=== PATIENT | female | born 1965 | race Caucasian/White ===

== ENCOUNTER 2018-11-23 14:36 | Emergency (ER) | payer MEDICAID ==
[~2018-11-23] VITALS: Ht 162.6 cm; Wt 57.0 kg
[2018-11-23 15:18] LABS: CHLORIDE 112 mEq/L (98-107)
[2018-11-23 15:23] LABS: BASOPHILS % 0.8 % (0.0-2.0); EOSINOPHILS % 0.2 % (0.0-5.0); HEMATOCRIT. 42.6 % (36.0-48.0); HEMOGLOBIN. 14.6 g/dL (12.0-16.0); LYMPHOCYTES % 53.9 % (20.0-50.0); MEAN CORPUSCULAR HEMOGLOBIN 31.6 pg (28.0-32.0); MEAN PLATELET VOLUME 7.4 fl (7.4-10.4); MONOCYTES % 4.6 % (2.0-8.0); NEUTROPHILS % 40.5 % (40.0-76.0); PLATELET 200 x1000/uL (130-400); RED BLOOD CELL COUNT 4.63 mill/uL (4.2-5.4); RED CELL DISTRIBUTION WIDTH 12.8 % (11.6-14.6)
[2018-11-23 15:31] LABS: ETHANOL BLOOD 310 mg/dL
[2018-11-23] MEDS ORDERED: FOLIC ACID 1 MG, THIAMINE HCL 100 MG, MVI, ADULT NO.1 10 ML in DEXTROSE 5% WATER 1,000 ML IV NR ×4 (15:45)
[2018-11-23 16:11] LABS: CLARITY URINE CLEAR (CLEAR); COLOR URINE YELLOW (YELLOW); KETONES URINE NEGATIVE (NEGATIVE); LEUKOCYTE ESTERASE URINE NEGATIVE (NEGATIVE); NITRITE URINE NEGATIVE (NEGATIVE); OCCULT BLOOD URINE NEGATIVE (NEGATIVE); PH URINE 5.5 (4.5-8.0); PROTEIN URINE NEGATIVE (NEGATIVE); SPECIFIC GRAVITY URINE 1.002 (1.005-1.030); UROBILINOGEN URINE 0.2 E.U./dL (0.2-1.0)
[2018-11-23 16:20] LABS: *AMPHETAMINES SCREEN URINE NEGATIVE (NEGATIVE); *BARBITURATES SCREEN URINE NEGATIVE (NEGATIVE); *BENZODIAZEPINES SCREEN URINE NEGATIVE (NEGATIVE); *COCAINE SCREEN URINE NEGATIVE (NEGATIVE)
[2018-11-23 16:21] LABS: CANNABINOID URINE SCREEN NEGATIVE (NEGATIVE); METHADONE URINE SCREEN NEGATIVE (NEGATIVE); OPIATES URINE SCREEN NEGATIVE (NEGATIVE); PHENCYCLIDINE URINE SCREEN NEGATIVE (NEGATIVE)
[2018-11-23] MEDS ORDERED: LORAZEPAM 2MG/ML CPJ ONE (17:51)
[2018-11-23] MEDS ORDERED: LORAZEPAM 2MG/ML CPJ IM ONE (18:00)
[2018-11-24] MEDS ORDERED: ONDANSETRON 4MG ODT PO ONE (09:15)
[2018-11-24] MEDS ORDERED: CHLORDIAZEPOXIDE 25MG CAPSULE PO ONE ×2 (09:30→10:30)
[2018-11-24 10:30] VITALS: BP 122/78
== END 2018-11-24 10:33 | disposition home or self-care (01) ==
LOC: ER 14:36
DX: F10.129 Alcohol abuse with intoxication, unspecified (principal); F32.89 Other specified depressive episodes; R45.851 Suicidal ideations; D64.9 Anemia, unspecified
CPT/HCPCS: 36415; 80048; 80305; 80307; 80320; 80329; 81003; 81025; 85025; 99284; J2060; J3411; J3490; J7070; Q0162; G0480